=== PATIENT | male | born 1985 | race Caucasian/White ===

== ENCOUNTER 2018-07-16 09:07 | Emergency (ER) | payer OTHER ==
[~2018-07-16] VITALS: Ht 175.3 cm; Wt 90.7 kg
[2018-07-16 10:10] LABS: HEMATOCRIT 40.7 % (42.0-52.0); MCH 31.8 pg (26.0-34.0); MCHC 34.5 g/dL (28.0-37.0); MCV 92.2 fL (80.0-100.0); PLATELET COUNT 196 thou/uL (150-400); RBC 4.41 mil/uL (4.50-6.00); RDW 13.1 % (10.5-14.5); WBC 14.5 thou/uL (4.0-11.0)
[2018-07-16 10:17] LABS: CREATININE 1.1 mg/dL (0.7-1.3)
[2018-07-16 10:59] LABS: ABSOLUTE NEUTROPHILS 10.3 thou/uL (1.4-8.2); ANISOCYTOSIS SLIGHT
[2018-07-16] MEDS ORDERED: NORCO 5-325 TA1 EACH PO (12:29)
[2018-07-16] MEDS ORDERED: AUGMENTIN 875-1 EACH PO (12:29)
[2018-07-16 12:40] VITALS: BP 108/58
== END 2018-07-16 12:40 | disposition home or self-care (01) ==
LOC: ER 09:07
PROVIDERS: Student in an Organized Health Care Education/Training Program
DX: K61.1 Rectal abscess (principal); F17.210 Nicotine dependence, cigarettes, uncomplicated